=== PATIENT | male | born 1980 | race Caucasian/White ===

== ENCOUNTER 2016-11-16 16:17 | Emergency (ER) | payer MEDICAID ==
[~2016-11-16] VITALS: Ht 182.9 cm; Wt 90.7 kg
[2016-11-16 16:38] VITALS: BP 126/81; PULSE 104; RESP 20; TEMP 98.9; O2SAT 99
--- NOTE | 2016-11-16 17:38 | NUR ---
Called pt x 3, per administrative assistant front desk staff pt left without being seen .
== END 2016-11-16 17:38 | disposition left against medical advice (07) ==
LOC: SED 16:17
DX: R10.9 Unspecified abdominal pain (principal); Z53.21 Procedure and treatment not carried out due to patient leaving prior to being seen by health care provider

== ENCOUNTER 2016-11-18 23:13 | Emergency (ER) | payer MEDICAID ==
[~2016-11-18] VITALS: Ht 182.9 cm; Wt 90.7 kg
[2016-11-18 23:20] VITALS: BP 133/78; PULSE 74; RESP 17; TEMP 97.2; O2SAT 96
--- NOTE | 2016-11-18 23:20 | NUR ---
Patient to ER bed 6 to gown for evaluation. Side rails up. Report given to Say HUGHES.
--- NOTE | 2016-11-18 23:26 | NUR ---
Placed in room 6 by triage nurse. Placed on manager customs, blood pressure machine and pulse oximeter. To gown for exam. Side rails up.
--- NOTE | 2016-11-18 23:31 | NUR ---
Pt c/o increased swelling and pain to feet/ankles. Reports he has been walking x2 days and has walked "probably over 60 miles." Rates pain as 7/10. Ankles noted to have minimal swelling. Pt denies having any other symptoms. No acute distress noted. Respirations even and unlabored. Will continue to monitor
--- NOTE | 2016-11-18 23:34 | NUR ---
ER Dr. Montes at bedside examining patient.
[2016-11-18] MEDS ORDERED: KETOROLAC TROMETHAMINE 30 MG VIAL IVP ONE (23:45)
[2016-11-18] MEDS ORDERED: NACL 0.9% 1,000 ML IV ONE (23:45)
--- NOTE | 2016-11-19 00:02 | NUR ---
IV # 20 gauge angiocath placed to R forearm. Use of asceptic technique. Opsite placed over site. Blood return noted. Blood for lab drawn from site. Flushed with 10 cc of normal saline. No evidence of infiltration noted. Patient tolerated well.
[2016-11-19 00:06] LABS: BASOPHILS # (AUTO) 0.1 K/uL (0.0-0.2); BASOPHILS % (AUTO) 1.5 % (0.0-2.0); EOSINOPHILS # (AUTO) 0.6 K/uL (0.0-0.4); EOSINOPHILS % (AUTO) 7.8 % (0.0-4.0); HEMATOCRIT 33.9 % (36-54); LYMPHOCYTES # (AUTO) 2.4 K/uL (1.0-5.5); LYMPHOCYTES % (AUTO) 31.2 % (20.5-51.5); MEAN CORPUSCULAR HEMOGLOBIN 35 pg (27-31); MEAN CORPUSCULAR HGB CONC 36 % (32-36); MEAN CORPUSCULAR VOLUME 97 fL (79.0-98.0); MONOCYTES # (AUTO) 0.8 K/uL (0.0-1.0); MONOCYTES % (AUTO) 9.7 % (1.7-9.3); NEUTROPHILS # (AUTO) 3.9 K/uL (1.8-7.7); NEUTROPHILS % (AUTO) 49.8 % (40.0-70.0); PLATELET COUNT (AUTO) 245 K/uL (130-430); RED BLOOD CELL COUNT(AUTO) 3.48 MIL/uL (4.2-6.2); RED CELL DISTRIBUTION WIDTH 12.3 % (9.0-15.0); WHITE BLOOD COUNT (AUTO) 7.8 K/uL (4.8-10.8)
[2016-11-19 00:13] LABS: CALCIUM 8.4 mg/dL (8.4-11.0); CREATININE 1.03 mg/dL (0.55-1.30); POTASSIUM 3.8 mmol/L (3.5-5.1)
[2016-11-19 00:24] LABS: ALBUMIN 3.1 g/dL (3.4-4.8); TOTAL BILIRUBIN 0.1 mg/dL (0.0-1.0); TOTAL PROTEIN, SERUM 6.2 g/dL (6.4-8.3)
[2016-11-19 00:50] VITALS: BP 123/72; PULSE 72; RESP 16; TEMP 97.6
--- NOTE | 2016-11-19 00:53 | NUR ---
Patient given written and verbal discharge instructions and verbalizes understanding. ER MD discussed with patient the results and treatment provided. Patient in stable condition. ID arm band removed. Rx of Motrin given. Patient educated on pain management and to follow up with PMD. Pain Scale 0/10. Opportunity for questions provided and answered.
[2016-11-19 01:07] VITALS: O2SAT 96
== END 2016-11-19 00:50 | disposition home or self-care (01) ==
LOC: SED 23:13
DX: S96.912A Strain of unspecified muscle and tendon at ankle and foot level, left foot, initial encounter (principal); S96.911A Strain of unspecified muscle and tendon at ankle and foot level, right foot, initial encounter; R03.0 Elevated blood-pressure reading, without diagnosis of hypertension; B19.20 Unspecified viral hepatitis C without hepatic coma; Z59.0 Homelessness; X58.XXXA Exposure to other specified factors, initial encounter; Y93.89 Activity, other specified; Y99.8 Other external cause status; Y92.89 Other specified places as the place of occurrence of the external cause
CPT/HCPCS: 36415; 80053; 85025; 96361; 96374; 99284; J1885; J7030

== ENCOUNTER 2016-12-30 22:50 | Emergency (ER) | payer MEDICAID ==
[~2016-12-30] VITALS: Ht 185.4 cm; Wt 90.7 kg
[2016-12-30 23:05] VITALS: BP_SYST 133
--- NOTE | 2016-12-30 23:05 | NUR ---
Patient triaged and placed in waiting room. VSS and patient appears in no acute distress at this time. Accompanied by self, awaiting available bed, and MD notified of need for MSE.
--- NOTE | 2016-12-30 23:58 | NUR ---
Placed in room 05 . Placed on systems architecture analyst, blood pressure machine and pulse oximeter. To gown for exam. Side rails up. Report given to ELLEN Naylor.
[2016-12-31 00:49] LABS: BILIRUBIN,URINE NEGATIVE (NEGATIVE); BLOOD, URINE 1+ (NEGATIVE); CLARITY/URINE CLEAR (CLEAR); COLOR,URINE YELLOW (YELLOW); GLUCOSE,URINE NEGATIVE (NEGATIVE); KETONES,URINE NEGATIVE (NEGATIVE); LEUKOCYTE ESTERASE ,URINE NEGATIVE (NEGATIVE); NITRITE, URINE NEGATIVE (NEGATIVE); PH,URINE 5.5 (5.0-8.0); PROTEIN URINE NEGATIVE (NEGATIVE); UROBILINOGEN,URINE 0.2 (0.2-1.0)
[2016-12-31 01:03] LABS: BACTERIA,URINE None Seen /HPF (None Seen); WBC,URINE 0-3 /HPF (0-3)
[2016-12-31 01:04] LABS: MUCUS,URINE 1+ /LPF (None Seen)
--- NOTE | 2016-12-31 01:15 | NUR ---
MD Dash at bedside examining pt
[2016-12-31] MEDS ORDERED: NACL 0.9% 1,000 ML IV ONE ×2 (01:30→02:45)
[2016-12-31 02:12] LABS: EOSINOPHILS # (AUTO) 0.5 K/uL (0.0-0.4); EOSINOPHILS % (AUTO) 6.3 % (0.0-4.0); HEMATOCRIT 35.1 % (36-54); LYMPHOCYTES # (AUTO) 3.1 K/uL (1.0-5.5); LYMPHOCYTES % (AUTO) 35.3 % (20.5-51.5); MEAN CORPUSCULAR HEMOGLOBIN 33 pg (27-31); MEAN CORPUSCULAR HGB CONC 34 % (32-36); MEAN CORPUSCULAR VOLUME 97 fL (79.0-98.0); MONOCYTES # (AUTO) 0.8 K/uL (0.0-1.0); MONOCYTES % (AUTO) 8.9 % (1.7-9.3); PLATELET COUNT (AUTO) 225 K/uL (130-430); RED CELL DISTRIBUTION WIDTH 12.1 % (9.0-15.0); WHITE BLOOD COUNT (AUTO) 8.7 K/uL (4.8-10.8)
[2016-12-31 02:13] LABS: CALCIUM 7.7 mg/dL (8.4-11.0); CREATININE 0.95 mg/dL (0.55-1.30); POTASSIUM 3.5 mmol/L (3.5-5.1)
[2016-12-31 02:15] LABS: BASOPHILS % (AUTO) 0.8 % (0.0-2.0); NEUTROPHILS # (AUTO) 4.3 K/uL (1.8-7.7); NEUTROPHILS % (AUTO) 48.7 % (40.0-70.0)
--- NOTE | 2016-12-31 02:15 | NUR ---
Pt in bed, no sign of distress. Will continue to monitor
[2016-12-31 02:17] LABS: ALBUMIN 3.1 g/dL (3.4-4.8); TOTAL BILIRUBIN 0.1 mg/dL (0.0-1.0); TOTAL PROTEIN, SERUM 5.8 g/dL (6.4-8.3)
[2016-12-31 02:44] LABS: CKMB RELATIVE INDEX 0.8 (0.0-2.9); CREATINE KINASE MB 5.1 ng/mL (0-3.6)
--- NOTE | 2016-12-31 03:30 | NUR ---
Needs assessed and care attended. Pt in stable condition
--- NOTE | 2016-12-31 04:45 | NUR ---
Pt appeared resting comfortably in bed. Will continue to monitor
[2016-12-31 06:30] VITALS: BP_SYST 120
--- NOTE | 2016-12-31 06:30 | NUR ---
Patient given written and verbal discharge instructions and verbalizes understanding. ER MD Dash discussed with patient the results and treatment provided.Patient in stable condition. ID arm band removed. No Rx given. Patient educated on pain management and to follow up with PMD. Pain Scale 0/10 Opportunity for questions provided and answered.
[2016-12-31 07:05] LABS: CKMB RELATIVE INDEX 0.8 (0.0-2.9); CREATINE KINASE MB 4.2 ng/mL (0-3.6)
== END 2016-12-31 06:30 | disposition home or self-care (01) ==
LOC: SED 22:50
DX: M62.82 Rhabdomyolysis (principal); E86.0 Dehydration; Z59.0 Homelessness; Z86.19 Personal history of other infectious and parasitic diseases
CPT/HCPCS: 36415; 80053; 81000; 82550; 82553; 83605; 84484; 85025; 96360; 96361; 99284; J7030 ×2

== ENCOUNTER 2017-01-01 02:21 | Emergency (ER) | payer MEDICAID ==
[~2017-01-01] VITALS: Ht 185.4 cm; Wt 86.2 kg
[2017-01-01 02:21] VITALS: BP_SYST 151
--- NOTE | 2017-01-01 02:21 | NUR ---
Patient to ER bed 8 to gown for evaluation. Side rails up. Report given to Dayday HUGHES
[2017-01-01] MEDS ORDERED: NACL 0.9% 1,000 ML IV ONE (02:30)
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
--- NOTE | 2017-01-01 02:37 | NUR ---
Security called, Pt noted to leave ER.
== END 2017-01-01 02:38 | disposition left against medical advice (07) ==
LOC: SED 02:21
DX: F41.9 Anxiety disorder, unspecified (principal); Z53.20 Procedure and treatment not carried out because of patient's decision for unspecified reasons
CPT/HCPCS: 99281